=== PATIENT | male | born 1970 | race Caucasian/White ===

== ENCOUNTER 2023-08-13 21:16 | Emergency (ER) | payer SELFPAY ==
[2023-08-13 21:20] VITALS: BP 147/91
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
== END 2023-08-13 22:23 | disposition left against medical advice (07) ==
LOC: EMR 21:16
PROVIDERS: EMERGENCY PHYSICIAN Student in an Organized Health Care Education/Training Program
DX: T30.0 Burn of unspecified body region, unspecified degree (principal)
CPT/HCPCS: 99281